=== PATIENT | female | born 1980 | race Caucasian/White ===

== ENCOUNTER 2018-12-08 08:13 | Emergency (ER) | payer SELFPAY ==
[2018-12-08 08:16] VITALS: BP 217/165; PULSE 110; RESP 26; TEMP 36.4; O2SAT 95; BMI 39.3
--- NOTE | 2018-12-08 08:28 | RAD_ITS ---
STUDY: X-RAY CHEST REASON FOR EXAM: Female, 38 years old. Cough and fever. TECHNIQUE: PA and lateral views of the chest. COMPARISON: None. FINDINGS: Minimal increased markings in the right middle lobe early infiltrate should be ruled out. There is no demonstrated pleural abnormality. Normal size heart. Normal mediastinum and tiarra. Normal visualized pulmonary arteries. Normal visualized aortic arch and descending thoracic aorta. Normal visualized thoracic spine. Normal visualized ribs, clavicles, and shoulders. There is no demonstrated abnormality of the visualized soft tissue structures of the upper abdomen. RAD/Chest PA and Lateral IMPRESSION: Minimal increased markings in the right middle lobe. Early infiltrate should be ruled out. Electronically Signed: Mariano Fam, at 9:44 EDT , Service support ,
--- NOTE | 2018-12-08 08:29 | ED.DCSUM_ITS ---
- ER Visit Summary Date of Service: 12/08/18 Chief Complaint: Cough and fever along with nausea, vomiting and diarrhea History of Present Illness: The patient is a 38 F past medical history of hypertension but she is noncompliant with medications. She states when she was taken him in the past her pressure was fine so she stopped taking the medication. States in the last 5 to 7 days she has had a cough of yellowish- green sputum and a fever as high as 101.4. In the last 2 days she started having nausea, vomiting and diarrhea. States she is thrown up 9 times in the last 2 days. Denies any hematemesis. No melena. Also states she is lost about 18 pounds since Wednesday. Physical Examination: Well ourished female. Vital signs are stable except initial blood pressure was 217/165 that will be rechecked.. She is afebrile. She does not look septic or toxic. H EENT exam unremarkable moist week's membranes tears in her eyes. Posterior pharynx unremarkable. Neck nontender no lymphadenopathy no meningismus. Lungs dry cough but no rales, rhonchi or wheezing. Equal symmetrical. Heart regular rhythm rate about 100 no murmur. Abdomen is soft and nontender normal bowel sounds no peritoneal signs. Moves all 4 extremities. Neurovascular intact. Calves are nontender without edema or cords. Back nontender. Skin unremarkable. Neurologically she is awake alert with no focal motor deficits. Test Results: Chest x-ray 2 views AP and lateral read b both by myself and the radiologist. Shows a right early middle lobe pneumonia/infiltrate. Emergency Department Course and Treatment: Patient treated with IV fluids, IV Zofran and will be reassessed. P exam patient is doing well. Blood pressure still elevated 200/120. She will be started on Zithromax Z-ADRIÁN for her right middle lobe pneumonia and the first is to be given in ER. She also be started on lisinopril 20 mg/day for the blood pressure first dose given the ER. Treatment Plan: Off work next 2 days. Plenty fluids and rest. Zofran for nausea. Zithromax Z-ADRIÁN for the pneumonia. Started on lisinopril 10 mg a day for her blood pressure. She knows she has to monitor her blood pressure to see if we need to adjust the dose or change medications. She has no primary care physician and will be referred to Dr. Aydin Nuñez of [facility]. Disposition: Discharge Impression: Acute right middle lobe pneumonia Acute hypertension This note was generated with [employer] dictation software. It may contain incorrect words, spelling, and punctuation that were not noted in review of the chart prior to signing ED Disposition - Plan for ED Patient: Referrals: Sima Blair MD [NON-STAFF] -
[2018-12-08] MEDS: Ondansetron 4 MG/2 ML Vial IV (08:43)
[2018-12-08] MEDS: 0.9% Normal Saline 1,000 ML 1000 ML IV (08:43)
--- NOTE | 2018-12-08 10:04 | ED.DEP ---
ED Disposition - Plan for ED Patient: Disposition: Home or Assisted Living Instructions: PNEUMONIA (Adult), HYPERTENSION, Established Prescriptions: Lisinopril 20 mg PO DAILY #30 tab Prescription Printed Azithromycin [Zithromax] 250 mg PO DAILY #4 tab Prescription Printed Ondansetron [Zofran Odt] 4 mg PO Q8H PRN PRN #10 tab PRN Reason: Nausea Prescription Printed Referrals: Aydin Morillo MD [STAFF PHYSICIAN] - As soon as possible Sima Blair MD [NON-STAFF] - As soon as possible Additional Instructions: Zithromax 1 pill a day for the next 4 days starting tomorrow for your pneumonia. You are given your first dose here. Zofran as needed for nausea. Plenty of fluids and rest. Off work next 2 days. You have established high blood pressure. We will start her on lisinopril 20 mg once a day. First dose given in the ER. You need to monitor your blood pressures twice a day. And follow-up with a local primary care physician to ensure that you are on the right medication, is working correctly and that you are just does not need to be either adjusted up or down.
[2018-12-08] MEDS: Azithromycin 250 MG Tablet 500 MG PO (10:13)
[2018-12-08] MEDS: Lisinopril 20 MG Tablet PO (10:28)
[2018-12-08 10:31] VITALS: BP 149/77; PULSE 62; RESP 15; O2SAT 98
== END 2018-12-08 10:31 | disposition home or self-care (01) ==
PROVIDERS: Emergency Provider Emergency Medicine
DX: J18.9 Pneumonia, unspecified organism (principal); I10 Essential (primary) hypertension; Z91.14 Patient's other noncompliance with medication regimen; R19.7 Diarrhea, unspecified; Z79.899 Other long term (current) drug therapy
CPT/HCPCS: 71046; 96361; 96374; 99284; J7030; A4216; J2405